=== PATIENT | female | born 1965 | race Caucasian/White ===

== ENCOUNTER 2023-10-08 04:42 | Day surgery (SDC) | payer OTHER ==
[2023-10-07 12:38] VITALS: BMI 28.9
[2023-10-08] MEDS ORDERED: PROPOFOL 40 ML ONE (10:33)
[2023-10-08 11:11] VITALS: TEMP 97.7
[2023-10-08 11:13] VITALS: BP 120/60; PULSE 74; RESP 18
== END 2023-10-08 11:25 | disposition home or self-care (01) ==
LOC: FASU-ENDO 04:42 → JASU-ENDO 04:42 → FASU-ENDO 11:25
PROVIDERS: ATTEND Internal Medicine Gastroenterology
PROC: 0DBM8ZX Excision of Descending Colon, Via Natural or Artificial Opening Endoscopic, Diagnostic (ICD-10-PCS; principal; 2023-10-08 10:20)
DX: Z12.11 Encounter for screening for malignant neoplasm of colon (principal); Z86.010 Personal history of colon polyps; D12.4 Benign neoplasm of descending colon; K63.5 Polyp of colon; R19.5 Other fecal abnormalities; K57.30 Diverticulosis of large intestine without perforation or abscess without bleeding; K64.8 Other hemorrhoids
CPT/HCPCS: 88305-TC